=== PATIENT | male | born 1965 ===

== ENCOUNTER 2018-04-17 00:02 | Emergency (ER) | payer OTHER ==
[2018-04-17] MEDS ORDERED: ZOFRAN ODT PO ONE (00:32)
[2018-04-17 01:19] LABS: Basophils # (Auto) 0.1 K/mm3 (0.0-0.1); Basophils % (Auto) 0.8 % (0.0-1.8); Eosinophils % (Auto) 0.3 % (0.0-4.3); Hematocrit 46.1 % (35.5-45.6); Hemoglobin 15.2 gm/dl (11.8-15.2); Lymphocytes # (Auto) 1.6 K/mm3 (1.2-5.4); Lymphocytes % (Auto) 17.2 % (13.4-35.0); Mean Corpuscular HGB Conc 33 % (32-34); Mean Corpuscular Hemoglobin 27 pg (28-32); Mean Corpuscular Volume 82 fl (84-94); Monocytes # (Auto) 0.4 K/mm3 (0.0-0.8); Monocytes % (Auto) 4.2 % (0.0-7.3); Platelet Count 201 K/mm3 (140-440); Red Blood Count 5.62 M/mm3 (3.65-5.03); Red Cell Distribution Width 14.5 % (13.2-15.2)
[2018-04-17 01:48] LABS: Alanine Aminotransferase 21 units/L (7-56); Albumin 4.6 g/dL (3.9-5); BUN/Creatinine Ratio 11; Blood Urea Nitrogen 10 mg/dL (9-20); Calcium 9.5 mg/dL (8.4-10.2); Hemolysis Index 3; Lipase 18 units/L (13-60)
[2018-04-17 03:00] LABS: Amorphous Crystals,Urine 1+; Bacteria,Urine 1+ /HPF (Negative); Bilirubin,Urine NEG (Negative); Blood,Urine NEG (Negative); Color,Urine Yellow (Yellow); Hyaline Casts,Urine 23 /LPF; Mucus,Urine 3+ /HPF
[2018-04-17 03:07] VITALS: BP 124/79
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
--- NOTE | 2018-04-17 06:59 | Ultrasound Report ---
FINAL REPORT EXAM: US ABDOMEN LIMITED HISTORY: ruq pain COMPARISONS: None FINDINGS: Grayscale and color Doppler ultrasound evaluation of the right upper abdomen Liver is normal in size and contour. Hepatic parenchymal echogenicity is within normal limits. No parenchymal lesion identified. No intra or extrahepatic biliary ductal dilatation. The common duct measures approximately 4 millimeters in caliber. Layering sludge within the gallbladder. Focal 8 millimeter stone versus tumefactive sludge is minimally shadowing in the gallbladder neck. Gallbladder wall measures approximately 2 millimeters in thickness. Imaged portion of the pancreatic head is remarkable for slightly hypoechoic parenchyma. The remainder of the pancreas is not well seen secondary to overlying bowel gas. No abdominal ascites or free fluid in Atkins's pouch. The right kidney measures up to 10.2 cm in length and is without hydronephrosis or echogenic shadowing foci to suggest nephrolithiasis. There is a lateral interpolar right renal echogenic lesion measuring 8 x 7 x 11 millimeters. Also in the interpolar right kidney there is a 2.4 centimeter septated anechoic cystic structure with eccentric echogenic minimally shadowing foci. IMPRESSION: Biliary sludge with possible 8 millimeter stone near the neck of the gallbladder but no additional sonographic findings of cholecystitis. Consider nuclear medicine hepatobiliary scan for more specific evaluation as warranted. Decreased echogenicity of the pancreatic parenchyma may be due to edema. Correlation with serum lipase is requested. Right renal cysts with septations and possible calcifications measures up to 2.[address] or MRI follow-up is recommended if this finding has not been previously documented. 1.1 cm indeterminate right renal echogenic lesion possibly representing an angiomyolipoma can also be further characterized on the additional examination if not previously documented.
== END 2018-04-17 05:24 | disposition home or self-care (01) ==
LOC: ED 00:02
DX: K80.20 Calculus of gallbladder without cholecystitis without obstruction (principal); N30.00 Acute cystitis without hematuria; F17.200 Nicotine dependence, unspecified, uncomplicated
CPT/HCPCS: 36415; 76705; 80053; 81001; 83690; 85025; 93005; 93010; Q0162

== ENCOUNTER 2018-04-30 14:37 | Emergency (ER) | payer OTHER ==
--- NOTE | 2018-04-30 16:42 | XRay Report ---
FINAL REPORT EXAM: XR FOOT 3+V LT HISTORY: tripped and hit foot on concrete arianne . Pain in the 5th toe. TECHNIQUE: AP, lateral, and oblique views of the left foot PRIORS: None. FINDINGS: There is no evidence for acute fracture or dislocation. Bony mineralization is normal. Severe joint space narrowing of the talonavicular joint is noted.. There is a metallic radiopaque foreign body in the soft tissues along the plantar surface beneath the 2nd metatarsal-phalangeal joint. Significance is uncertain. The DOS IMPRESSION: No acute soft tissue or bony abnormality noted. Metallic foreign body in the plantar soft tissues beneath the 2nd metatarsophalangeal joint.
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
[2018-04-30 20:49] VITALS: BP 145/101
== END 2018-04-30 20:50 | disposition home or self-care (01) ==
LOC: ED 14:37
DX: M79.675 Pain in left toe(s) (principal); H66.001 Acute suppurative otitis media without spontaneous rupture of ear drum, right ear; F17.200 Nicotine dependence, unspecified, uncomplicated
CPT/HCPCS: 99283